=== PATIENT | female | born 1985 | race Hispanic/Latino ===

== ENCOUNTER 2018-12-15 20:30 | Emergency (ER) | payer BC, MEDICAID ==
[2018-12-15] MEDS ORDERED: HYDROCODONE/ACETAMINOPHEN 5/325 MG TAB ONE (21:16)
[2018-12-15 21:30] LABS: APPEARANCE,URINE Clear (CLEAR); BILIRUBIN,URINE Negative (NEGATIVE); COLOR,URINE Yellow (YELLOW); GLUCOSE, URINE (UA) Negative (NEGATIVE); KETONES,URINE Negative (NEGATIVE); LEUKOCYTE ESTERASE ,URINE Negative (NEGATIVE); NITRATE,URINE Negative (NEGATIVE); OCCULT BLOOD,URINE Negative (NEGATIVE); PH,URINE 5.5 (5.0-8.0); PROTEIN,URINE Negative (NEGATIVE)
[2018-12-15 21:36] LABS: HCG,QUAL RESULT NEGATIVE (NEGATIVE)
== END 2018-12-15 23:00 | disposition home or self-care (01) ==
LOC: EDH 20:30
DX: R51 Headache (principal); Z87.891 Personal history of nicotine dependence
CPT/HCPCS: 70450; 81003; 81025; 82948

== ENCOUNTER 2023-10-25 20:56 | Emergency (ER) | payer BC, OTHER ==
[~2023-10-25] VITALS: Ht 160 cm; Wt 104.4 kg
[2023-10-25 23:37] LABS: APPEARANCE,URINE CLEAR (CLEAR); BILIRUBIN,URINE NEGATIVE (NEGATIVE); COLOR,URINE LIGHT-YELLOW (YELLOW); GLUCOSE, URINE (UA) NEGATIVE (NEGATIVE); KETONES,URINE NEGATIVE (NEGATIVE); LEUKOCYTE ESTERASE ,URINE 75 Leu/uL (NEGATIVE); NITRATE,URINE NEGATIVE (NEGATIVE); OCCULT BLOOD,URINE NEGATIVE (NEGATIVE); PROTEIN,URINE 20 mg/dL (NEGATIVE); UROBILINOGEN,URINE 0.2 mg/dL (0.2-1.0)
[2023-10-25 23:48] LABS: ADD UA MICROSCOPIC YES
[2023-10-25 23:50] LABS: BACTERIA,URINE None Seen /HPF (None Seen); CALCIUM OXALATE CRYSTALS,UR Rare /LPF (None Seen); MUCUS,URINE Few LPF (None Seen); SQUAMOUS EPITHELIAL CELL,UR Moderate /HPF (0-2)
[2023-10-26] MEDS ORDERED: CEFTRIAXONE 1G VIAL ONE (00:48)
[2023-10-26] MEDS ORDERED: PHENAZOPYRIDINE HCL 200 MG TABLET ONE (00:49)
[2023-10-26] MEDS ORDERED: KETOROLAC 60 MG VIAL (30MG/ML) IM ONE ×2 (00:49→01:00)
[2023-10-26] MEDS ORDERED: MICO45CR16 VG (00:52)
[2023-10-26] MEDS ORDERED: CEFD300C3 PO (00:52)
[2023-10-26] MEDS ORDERED: FLUC150T48 PO (00:52)
[2023-10-26] MEDS ORDERED: PHEN-847 PO (00:52)
[2023-10-26 00:54] VITALS: BP 146/76; PULSE 72; RESP 20; O2SAT 100
[2023-10-26] MEDS ORDERED: CEFTRIAXONE 1G VIAL IM ONE (01:00)
[2023-10-26] MEDS ORDERED: PHENAZOPYRIDINE HCL 200 MG TABLET PO ONE (01:00)
== END 2023-10-26 01:07 | disposition home or self-care (01) ==
LOC: EDH 20:56
DX: N39.0 Urinary tract infection, site not specified (principal); F41.9 Anxiety disorder, unspecified
CPT/HCPCS: 99284; 87088; 81001; J0696; J1885